=== PATIENT | female | born 1980 | race African-American/Black ===

== ENCOUNTER 2017-03-27 20:29 | Emergency (ER) | payer SELFPAY ==
[~2017-03-27] VITALS: Ht 162.6 cm; Wt 83.9 kg
[2017-03-27 21:06] LABS: Basophils # (auto) 0 uL; Hemoglobin 10.4 g/dL (12.2-16.2); Lymphocytes # (auto) 1.7 uL; White Blood Cell 8.1 10^3/uL (4.4-10.8)
[2017-03-27 21:08] LABS: Basophils % (auto) 0.3 % (0.0-2.0); Eosinophils # (auto) 0.1 uL; Eosinophils % (auto) 1.6 % (0.0-7.0); Hematocrit 31.5 % (36.0-46.0); Lymphocytes % (auto) 20.4 % (10.0-50.0); Mean Corpuscular Volume 72.8 fL (80.0-100.0); Monocytes # (auto) 0.6 uL; Monocytes % (auto) 7.7 % (0.0-12.0); Neutrophils # (auto) 5.7 uL; Nucleated Red Blood Cells % 0.1 %; Platelet Count (auto) 246 10^3/uL (140-450); Red Blood Cells 4.32 10^6/uL (4.0-5.20); Red Cell Distribution Width 19.3 % (11.8-14.3)
[2017-03-27 21:23] LABS: Alanine Aminotransferase 16 U/L (13-56); Albumin 3.4 g/dL (3.4-5.0); Anion Gap 10 (5-15); Aspartate Aminotransferase 15 U/L (15-37); BUN/Creatinine Ratio 18.3; Blood Urea Nitrogen 11 mg/dL (7-18); Calcium 8.9 mg/dL (8.5-10.1); Carbon Dioxide 24 mmol/L (21-32); Chloride 104 mmol/L (98-107); GFR African American 145 mL/min; GFR Non-African American 120 mL/min; Glucose 113 mg/dL (74-106); Potassium 3.2 mmol/L (3.5-5.1); Sodium 138 mmol/L (136-145)
[2017-03-27 21:25] LABS: INR 0.98 (0.9-1.15); Partial Thromboplastin Time 26.6 sec (22.64-33.71); Prothrombin Time 10.7 sec (9.37-12.3)
[2017-03-27 21:29] LABS: Alkaline Phosphatase 66 U/L (45-117); Bilirubin, Total 0.3 mg/dL (0.2-1.0); Total Protein 8.4 g/dL (6.4-8.2)
[2017-03-27] MEDS ORDERED: IODIXANOL 320MG/ML 100ML BTL IV ONE (22:19)
[2017-03-27] MEDS ORDERED: HYDROmorphone HCL 2 MG/ML VL IV ONE (23:30)
[2017-03-27] MEDS ORDERED: ONDANSETRON HCL 4 MG/2 ML VIAL IV ONE (23:30)
[2017-03-28] MEDS ORDERED: SODIUM CHLORIDE 0.9% 1,000 ML IV ONE
[2017-03-28] MEDS ORDERED: POTASSIUM CHL 20 Meq TABLET PO ONE (00:45)
[2017-03-28 02:00] VITALS: BP 112/71
== END 2017-03-28 02:00 | disposition home or self-care (01) ==
LOC: ER 20:29
DX: R51 Headache (principal); R07.89 Other chest pain; F41.9 Anxiety disorder, unspecified; G93.9 Disorder of brain, unspecified
CPT/HCPCS: 36415; 70450; 70460; 71045; 80053; 83880; 84443; 84484; 85025; 85610; 85730; 93005; 96361; 96374; 96375; 99285; J1170; J2405; Q9967

== ENCOUNTER 2017-12-10 09:00 | Emergency (ER) | payer MEDICAID, OTHER ==
[~2017-12-10] VITALS: Ht 165.1 cm; Wt 72.6 kg
[2017-12-10] MEDS ORDERED: SODIUM CHLORIDE 0.9% 1,000 ML IV ONE (09:50)
[2017-12-10] MEDS ORDERED: ONDANSETRON HCL 4 MG/2 ML VIAL IV ONE (10:00)
[2017-12-10 10:21] LABS: Eosinophils # (auto) 0.2 uL; Hemoglobin 11.6 g/dL (12.2-16.2); Lymphocytes # (auto) 1.4 uL; Mean Corpuscular Hgb Conc. 33.5 g/dL (32.0-36.0); Monocytes # (auto) 0.7 uL; Nucleated Red Blood Cells % 0.1 %
[2017-12-10 10:24] LABS: Basophils # (auto) 0 uL; Basophils % (auto) 0.6 % (0.0-2.0); Eosinophils % (auto) 3.4 % (0.0-7.0); Hematocrit 34.5 % (36.0-46.0); Lymphocytes % (auto) 19.6 % (10.0-50.0); Mean Corpuscular Hemoglobin 23.7 pg (28.0-32.0); Mean Corpuscular Volume 70.6 fL (80.0-100.0); Monocytes % (auto) 9.2 % (0.0-12.0); Neutrophils # (auto) 4.9 uL; Neutrophils % (auto) 67.2 % (37.0-80.0); Platelet Count (auto) 257 10^3/uL (140-450); Red Blood Cells 4.88 10^6/uL (4.0-5.20); Red Cell Distribution Width 17.9 % (11.8-14.3); White Blood Cell 7.3 10^3/uL (4.4-10.8)
[2017-12-10 10:25] LABS: INR 1.02 (0.9-1.15); Partial Thromboplastin Time 30.3 sec (23.78-33.04); Prothrombin Time 10.9 sec (9.27-12.13)
[2017-12-10 10:33] LABS: Albumin 3.4 g/dL (3.4-5.0); BUN/Creatinine Ratio 10.3; Calcium 8.5 mg/dL (8.5-10.1); Potassium 3.5 mmol/L (3.5-5.1)
[2017-12-10 10:36] LABS: Bilirubin, Total 0.4 mg/dL (0.2-1.0); Total Protein 9.1 g/dL (6.4-8.2)
[2017-12-10] MEDS ORDERED: HYDROcodone-ACET 5/325MG TAB PO ONE (11:00)
[2017-12-10 11:27] LABS: Urine Bacteria NONE SEEN /hpf (None Seen); Urine Blood Negative /uL (Negative); Urine Mucus FEW (None Seen); Urine Specific Gravity 1.013 (1.001-1.035); Urine Sperm PRESENT /hpf (None Seen); Urine WBC 10 /hpf (0 - 5)
[2017-12-10 12:09] VITALS: BP 141/98
== END 2017-12-10 12:13 | disposition home or self-care (01) ==
LOC: ER 09:00
DX: R51 Headache (principal); I10 Essential (primary) hypertension; Z86.73 Personal history of transient ischemic attack (TIA), and cerebral infarction without residual deficits; Z90.49 Acquired absence of other specified parts of digestive tract
CPT/HCPCS: 36415; 70450; 80053; 81001; 81025; 85025; 85610; 85730; 96374; 99285; J2405

== ENCOUNTER → 2019-06-21 | Emergency (ER) | payer MEDICAID ==
[~2019-06-21] VITALS: Ht 165.1 cm; Wt 81.6 kg
[~2019-06-21] MED LIST: CLINDAMYCIN 600MG IV 50 ML IV ONE; MORPHINE SULFATE 4 MG/ML SYR/VIAL IV ONE; ONDANSETRON HCL 4 MG/2 ML VIAL IV ONE; PIPERACILLIN-TAZOB 3.375GM 100 ML IV ONE; SODIUM CHLORIDE 0.9% 1,000 ML IV ONE; TETRACAINE HCL 0.5% OPTH(EYE) SOLN 4ML LEFTEYE ONE; cloNIDine HCL 0.1 MG TAB PO ONE; diphenhdrAMINE HCL 50 MG/1 ML VL IV ONE
[2019-06-21 18:15] LABS: Basophils # (auto) 0.1 10 ^3/uL (0-0.2); Hemoglobin 9.1 g/dL (12.2-16.2); Neutrophils # (auto) 4.8 10 ^3/uL (1.6-8.6); Nucleated Red Blood Cells % 0.1 %; Red Cell Distribution Width 19.4 % (11.8-14.3)
[2019-06-21 18:16] LABS: Basophils % (auto) 0.9 % (0.0-2.0); Eosinophils # (auto) 0.3 10 ^3/uL (0-0.8); Eosinophils % (auto) 3.2 % (0.0-7.0); Hematocrit 28.3 % (36.0-46.0); Lymphocytes # (auto) 1.9 10 ^3/uL (0.4-5.4); Lymphocytes % (auto) 23.8 % (10.0-50.0); Mean Corpuscular Hgb Conc. 32.2 g/dL (32.0-36.0); Mean Corpuscular Volume 62.1 fL (80.0-100.0); Monocytes % (auto) 12.1 % (0.0-12.0); Platelet Count (auto) 276 10^3/uL (140-450); Red Blood Cells 4.56 10^6/uL (4.0-5.20)
[2019-06-21 18:33] LABS: Albumin 3.1 g/dL (3.4-5.0); Calcium 8.4 mg/dL (8.5-10.1); Magnesium 2.1 mg/dL (1.6-2.6); Potassium 3.6 mmol/L (3.5-5.1)
[2019-06-21 18:36] LABS: Bilirubin, Total 0.2 mg/dL (0.2-1.0); Total Protein 8.7 g/dL (6.4-8.2)
[2019-06-21 23:00] VITALS: BP 136/91
== END | disposition home or self-care (01) ==
LOC: ER 16:35
DX: H05.012 Cellulitis of left orbit (principal); I10 Essential (primary) hypertension; E78.5 Hyperlipidemia, unspecified; Z86.73 Personal history of transient ischemic attack (TIA), and cerebral infarction without residual deficits; Z90.49 Acquired absence of other specified parts of digestive tract; Z90.89 Acquired absence of other organs
CPT/HCPCS: 36415; 70480; 71045; 80053; 83735; 85025; 96365; 96366; 96368; 96375; 96376; 99285; J1200; J2270; J2405; J2543; J3490; J7030

== ENCOUNTER 2023-04-05 13:24 | Emergency (ER) | payer MEDICARE, OTHER, MEDICAID ==
[~2023-04-05] VITALS: Ht 167.6 cm; Wt 100.0 kg
[2023-04-05 13:25] VITALS: BP 130/71; RESP 18; O2SAT 96
[2023-04-05 13:37] VITALS: PULSE 83
[2023-04-05 14:33] LABS: Eosinophils # (auto) 0.2 10 ^3/uL (0-0.8); Hemoglobin 13.3 g/dL (12.2-16.2); Monocytes # (auto) 0.7 10 ^3/uL (0-1.3)
[2023-04-05 14:35] LABS: Basophils # (auto) 0 10 ^3/uL (0-0.2); Basophils % (auto) 0.5 % (0.0-2.0); Eosinophils % (auto) 2.2 % (0.0-7.0); Hematocrit 39.9 % (36.0-46.0); Lymphocytes # (auto) 2.1 10 ^3/uL (0.4-5.4); Lymphocytes % (auto) 24.1 % (10.0-50.0); Mean Corpuscular Hemoglobin 26.5 pg (28.0-32.0); Mean Corpuscular Hgb Conc. 33.3 g/dL (32.0-36.0); Mean Corpuscular Volume 79.5 fL (80.0-100.0); Monocytes % (auto) 7.9 % (0.0-12.0); Neutrophils # (auto) 5.8 10 ^3/uL (1.6-8.6); Neutrophils % (auto) 65.3 % (37.0-80.0); Nucleated Red Blood Cells % 0.1 %; Red Blood Cells 5.02 10^6/uL (4.0-5.20); Red Cell Distribution Width 14.3 % (11.8-14.3); White Blood Cell 8.9 10^3/uL (4.4-10.8)
[2023-04-05 14:42] LABS: Chloride 108 mmol/L (98-107); Potassium 3.3 mmol/L (3.5-5.1); Sodium 140 mmol/L (136-145)
[2023-04-05 14:43] LABS: Anion Gap 8 (5-15); Calcium 9.3 mg/dL (8.5-10.1); Carbon Dioxide 24 mmol/L (20-30)
[2023-04-05 14:48] LABS: BUN/Creatinine Ratio 6.8 (10.0-20.0); Blood Urea Nitrogen 5 mg/dL (9-23); Glucose 86 mg/dL (74-106)
[2023-04-05] MEDS ORDERED: HYDROcodone-ACET 10/325MG TAB PO ONE (16:15)
[2023-04-05] MEDS ORDERED: POTASSIUM EFFERVESENT TAB 25 MEQ PO ONE (17:00)
== END 2023-04-05 16:55 | disposition home or self-care (01) ==
LOC: ER 13:24
DX: R51.9 Headache, unspecified (principal); E78.5 Hyperlipidemia, unspecified; I10 Essential (primary) hypertension; F12.10 Cannabis abuse, uncomplicated; Z86.73 Personal history of transient ischemic attack (TIA), and cerebral infarction without residual deficits; Z98.51 Tubal ligation status; Z90.49 Acquired absence of other specified parts of digestive tract
CPT/HCPCS: 36415; 70450; 80048; 85025; 93005